=== PATIENT | male | born 2000 | race Caucasian/White ===

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

== ENCOUNTER 2019-12-22 17:48 | Observation (INO) | payer OTHER ==
--- NOTE | 2019-12-22 20:38 | ED ---
Abdominal Pain/Male - HPI Summary HPI Summary: This pt is a 19 Y/O M presenting to [facility] with a CC of abdominal pain in the RLQ that presented on 12/20/2019 and is rated a 4/10 in severity. He states that the pain has been consistent since the onset. He states that he has had a normal appetite and had one abnormal bowel movement on 12/20/2019 when the abdominal pain occurred. He states that he had a fever which was resolved by DayQuil. He denies any N/V/D, SOB, CP, headaches, chills, and diaphoresis. He also denies any recent travel. He has a PMHx of a potential penicillin allergy. He denies any alleviating factors. He states that he has increased pain with movement. He states that he was seen at [facility] and had many of his labs completed. Pt was recommended here for a CT A/P. - History of Current Complaint Chief Complaint: EDAbdPain Stated Complaint: ABD PAIN PER PT Time Seen by Provider: 12/22/19 20:25 Hx Obtained From: Patient Onset/Duration: Sudden Onset, Lasting Days - 2, Still Present Timing: Constant, Lasting Days - 2 Severity Initially: Moderate Severity Currently: Moderate Pain Intensity: 4 Pain Scale Used: 0-10 Numeric Location: Discrete At: RLQ Radiates: No Aggravating Factor(s): Movement Alleviating Factor(s): Nothing Associated Signs And Symptoms: Positive: Negative - CP, headaches, chills, Fever - resolved with DayQuil. Negative: Diaphoresis, Chest Pain, Decreased Appetite, Nausea, Vomiting, Diarrhea - Allergies/Home Medications Allergies/Adverse Reactions: Allergies Allergy/AdvReac Type Severity Reaction Status Date / Time Penicillins Allergy Difficulty Verified 12/22/19 17:50 Swallowing Home Medications: Home Medications Ibuprofen TAB* [Motrin TAB* 600 MG] 600 mg PO Q6HR PRN 12/15/18 [History Confirmed 12/22/19] diPHENhydraMINE PO* [Benadryl PO 25 MG TAB*] 25 mg PO TID PRN #30 tab 12/15/18 [ Rx Confirmed 12/22/19] PMH/Surg Hx/FS Hx/Imm Hx Previously Healthy: Yes Endocrine/Hematology History: Denies: Hx Diabetes Cardiovascular History: Denies: Hx Hypertension Respiratory History: Denies: Hx Asthma - Cancer History Hx Chemotherapy: No Hx Radiation Therapy: No - Surgical History Surgical History: None - Immunization History Immunizations Up to Date: Yes Infectious Disease History: No Infectious Disease History: Denies: Traveled Outside the [place] in Last 30 Days - Family History Known Family History: Positive: Hypertension - Social History Occupation: Student [email or web address] Lives: Dormitory/Roommates Alcohol Use: Rare Hx Substance Use: No Substance Use Type: Reports: None Hx Tobacco Use: No Smoking Status (MU): Never Smoked Tobacco Review of Systems Positive: Fever. Negative: Chills, Skin Diaphoresis Negative: Chest Pain Negative: Shortness Of Breath Positive: Abdominal Pain, Other - POSITIVE: unusual bowel movement on 2019. Negative: Vomiting, Diarrhea, Nausea Negative: Headache All Other Systems Reviewed And Are Negative: Yes Physical Exam - Summary Physical Exam Summary: Appearance: Well-appearing, Well-nourished, lying in bed comfortably Skin: Warm, dry, no obvious rash Eyes: sclera anicteric, no conjunctival pallor ENT: mucous membranes moist, pharynx appears normal Neck: Supple, nontender Respiratory: Clear to auscultation, no signs of respiratory distress Cardiovascular: Normal S1, S2. No murmurs. Normal distal pulses in tibial and radial bilaterally. Abdomen: Soft, RLQ tenderness with mild guarding, normal active bowel sounds present Musculoskeletal: Normal, Strength/ROM Intact Neurological: A&Ox3, awake and alert, mentation is normal, speech is fluent and appropriate Psychiatric: affect is normal, does not appear anxious or depressed Triage Information Reviewed: Yes Vital Signs On Initial Exam: Initial Vitals Temp Pulse Resp BP Pulse Ox 98.2 F 87 16 123/74 97 12/22/19 17:50 12/22/19 17:50 12/22/19 17:50 12/22/19 17:50 12/22/19 17:50 Vital Signs Reviewed: Yes Procedures - Sedation Patient Received Moderate/Deep Sedation with Procedure: No Diagnostics - Vital Signs Vital Signs Temp Pulse Resp BP Pulse Ox 12/22/19 17:50 98.2 F 87 16 123/74 97 - Laboratory Lab Statement: Any lab studies that have been ordered have been reviewed, and results considered in the medical decision making process. - CT CT A/P CT Interpretation Completed By: Radiologist Summary of CT Findings: Acute appendicitis with associated small abscess. No perforation. ED physician has reviewed this report. Re-Evaluation - Re-Evaluation First Eval Re-Evaluation Time: 22:28 Change: Unchanged Comment: He will be referred to surgery for possible removal of appendix. Pt made aware and is agreeable. Abdominal Pain Male Course/Dx - Course Course Of Treatment: This pt is a 19 Y/O M presenting to [facility] with a CC of abdominal pain in the RLQ that presented on 12/20/2019 and is rated a 4/10 in severity. He states that the pain has been consistent since the onset. He states that he has had a normal appetite and had one abnormal bowel movement on 12/20/2019 when the abdominal pain occurred. He states that he had a fever which was resolved by DayQuil. His PE found RLQ tenderness with mild guarding. Pt had most of his labs taken at [facility] and therefore will first be sent for a CT A/P to R/O appendicitis. CT A/P: Acute appendicitis with associated small abscess. No perforation. He will be referred to surgery for possible removal of appendix. Pt made aware and is agreeable. Dr. Rae, surgery, aggreed to admit the pt to surgery. His Dx is acute appendicitis with abscess. - Diagnoses Provider Diagnoses: Appendicitis with abscess - Provider Notifications Discussed Care Of Patient With: Jayden Rae Time Discussed With Above Provider: 22:58 Instructed by Provider To: Admit As Inpatient Admit/Transition Orders Completed By ED Provider: Yes Discharge ED - Sign-Out/Discharge Documenting (check all that apply): Patient Departure - admitted - Discharge Plan Condition: Stable Disposition: ADMITTED TO [facility] - Billing Disposition and Condition Condition: STABLE Disposition: Admitted to [facility] - Attestation Statements Document Initiated by Britney: Yes Documenting Scribe: Silviano Moses Provider For Whom Britney is Documenting (Include Credential): Andrés Layton MD Scribe Attestation: Silviano Castellon, clayed for Andrés Layton MD on 12/23/19 at 0646. Scribe Documentation Reviewed: Yes Provider Attestation: The documentation as recorded by the Silviano grover accurately reflects the service I personally performed and the decisions made by me, Andrés Layton MD Status of Scribe Document: Viewed
[2019-12-22] MEDS ORDERED: Iohexol 300* (CONTRAST) 10 ML SDV IV ONE (21:08)
[2019-12-22] MEDS ORDERED: metroNIDAZOLE IV 500 MG/100ML* 500 MG/100 ML BAG IVPB ONE (22:28)
[2019-12-22] MEDS ORDERED: cefTRIAXone(*) 1 GM in NS 0.9% 50 ML* 50 ML IVPB ONE (22:28)
[2019-12-22] MEDS ORDERED: Ondansetron INJ* 2 MG/ML VIAL IV PRN (23:22)
[2019-12-22] MEDS ORDERED: Acetaminophen TAB* 325 MG PO PRN (23:22)
--- NOTE | 2019-12-23 01:15 | HP ---
CC: [facility]; [facility] * HISTORY AND PHYSICAL ADMISSION: DATE OF ADMISSION: 12/22/19 CHIEF COMPLAINT: Acute appendicitis. HISTORY OF PRESENT ILLNESS: Mr. 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 He has had no anorexia. He has been eating well over the course of the 2 days. He denies having fevers, shakes, or chills. He has had no urinary complaints. Yesterday, he did pretty well and was eating well, but noticed some discomfort mainly in the right lower quadrant and on ambulating. He awoke late this morning and presented to the [facility]. There, the white blood cell count was obtained, which returned as 11, 000. Remainder of his other labs was essentially unremarkable. Labs were not done here at [facility]. In light of his history and physical exam, he was referred to the [facility] Emergency Room. While here in the emergency room, he underwent a CT scan of the abdomen and pelvis. I did review these images. This does show a rather large fecalith, there is inflammation in the right lower quadrant with possible fluid. This does not appear to be an abscess. There is no extraluminal air and the study was otherwise unremarkable, but the findings were consistent with acute appendicitis. While waiting in the ER waiting room he says he had several snacks and a Pepsi from the vending machine-he estimates that this was 3-4 hours ago. PAST MEDICAL HISTORY: Unremarkable. PAST SURGICAL HISTORY: None. ALLERGIES: PENICILLINS and ALMONDS. FAMILY HISTORY: Father had appendicitis. There is no diabetes or high blood pressure. SOCIAL HISTORY: He is a [place] student. He drinks alcohol very rarely on a social basis. He does not smoke regularly. Denies use of illicit drugs. REVIEW OF SYSTEMS: Cerebrovascular: No dizziness or visual disturbances. Cardiovascular: No chest pain, shortness of breath. Pulmonary: No wheezing or hemoptysis. GI: As per above. : No urgency or hematuria. Endocrine: There is no diabetes. PHYSICAL EXAMINATION GENERAL: He is a well-developed, well-nourished male, appears to be in no apparent distress, he is awake, alert, and conversive and quite pleasant. VITAL SIGNS: Temperature, he is afebrile; pulse 88; blood pressure 102/69. HEENT: Oral mucosa is slightly dry. LUNGS: Clear to auscultation with normal respiratory effort. HEART: Regular rate and rhythm without murmurs, rubs, gallops. ABDOMEN: His abdomen is soft and nondistended. He had normoactive bowel sounds throughout. There are no prior surgical incisions. No hernias. He has some mild tenderness in the right lower quadrant without peritoneal irritation, mass, rigidity, or rebound. EXTREMITIES: Showed no cyanosis or edema. IMPRESSION: Acute appendicitis, present for least 48 hours. There appears to be a large fecalith with significant amount of inflammation, which may represent perforation, although there is no extraluminal air or obvious abscess. There is no peritonitis. He has been afebrile with a white blood cell count of 11,000; however, he was somewhat tachycardic when he presented, but he has not received pain medicine during his stay here. While he was waiting in the waiting room, he had soda and snacks including potato chips, Twizzlers, and other assorted food from the vending machine because he was hungry. He will require an appendectomy. I did also talk with our anesthesiologist on- call, Dr. De Leon, discussed the timing of surgery and about the fact that he just had a rather large amount of oral intake. This is not urgent emergency as he has no evidence of peritonitis and only a slight tachycardia to proceed with surgery and from an anesthetic standpoint, he felt more comfortable waiting full 8 hours prior to proceeding with surgery to make this as safe as possible. In light of this fact, we will admit him and we have an operating room time in the morning. I discussed all of this with the patient and as this condition would change in the next 8 hours, we will proceed with surgery disregarding the risk of aspiration at that time. PLAN: 1. The patient will be admitted to the short stay unit. 2. He will kept n.p.o. and start him on IV fluids. 3. Receive ceftriaxone in the emergency room as well as Flagyl. These antibiotics will be continued. 4. Analgesia will be given. 5. I discussed the procedure with the patient and the risks, but not limited to , bleeding, infection, intraabdominal abscess formation, injury to intraperitoneal and retroperitoneal structures, possibility of an open procedure , possibility of drain placement, possibility of prolonged hospital stay depending on findings at surgery. The risks of anesthesia and blood clots were also discussed briefly. [id number]/[facility] #: [id number] [facility]
[2019-12-23] MEDS: HYDROmorphone INJ1* 1 MG/ML SYRINGE IV SLOW PU PRN ×2 (02:56→07:53)
[2019-12-23] MEDS: NS 0.9% 1000 ML** 1,000 ML IV SCH ×3 (03:21→21:19)
[2019-12-23] MEDS ORDERED: Clindamycin 900 MG/D5W BAG(*) 900 MG/50 ML BAG IVPB ONE (08:58)
[2019-12-23] MEDS ORDERED: Propofol* 10 MG/ML 20 ML BTL ONE ×2 (09:42→11:41)
[2019-12-23] MEDS ORDERED: Ondansetron INJ* 2 MG/ML VIAL ONE (09:42)
[2019-12-23] MEDS ORDERED: Lidocaine 2% PF * 5 ML VIAL ONE (09:42)
[2019-12-23] MEDS ORDERED: Bupivacaine 0.25% SDV* 30 ML ONE (09:42)
[2019-12-23] MEDS ORDERED: Ketorolac INJ* 30 MG/ML 1 ML VIAL ONE (09:42)
[2019-12-23] MEDS ORDERED: Dexamethasone IV* 4 MG/ML 1 ML (4 MG) ONE (09:42)
[2019-12-23] MEDS ORDERED: Cisatracurium* 2 MG/ML MDV 5 ML ONE (09:43)
[2019-12-23] MEDS ORDERED: fentaNYL* 50 MCG/ML 2 ML VIAL (100 MCG VIAL) ONE (09:43)
[2019-12-23] MEDS ORDERED: Midazolam* 1 MG/ML 5 ML VIAL (5 MG) ONE (09:43)
[2019-12-23] MEDS ORDERED: HYDROmorphone INJ1* 1 MG/ML SYRINGE ONE (11:04)
[2019-12-23] MEDS ORDERED: Ondansetron INJ* 2 MG/ML VIAL IV PRN (11:09)
[2019-12-23] MEDS ORDERED: fentaNYL* 50 MCG/ML 2 ML VIAL (100 MCG VIAL) IV PRN (11:09)
[2019-12-23] MEDS ORDERED: HYDROmorphone INJ1* 1 MG/ML SYRINGE IV PRN (11:09)
[2019-12-23] MEDS ORDERED: Naloxone* 0.4 MG/ML 1 ML VIAL IV PRN (11:09)
[2019-12-23] MEDS ORDERED: Glycopyrrolate IV* 0.2 MG/ML 1 ML VIAL ONE (11:31)
[2019-12-23] MEDS ORDERED: Neostigmine Methylsulfate* 1 MG/ML 10 ML VIAL (1 mg/ml) ONE (11:31)
--- NOTE | 2019-12-23 12:08 | OP ---
Operative Report - Blank - Operative Report Date of Operation: 12/23/19 Note: Pre-OP Diagnoses: acute appendicitis Post-op Diagnosis: appendicitis with abscess Procedure: Laparoscopic appendectomy, drainage of abscess Surgeon: Orlando Asst: none Anethesia: ROBERTO EBL: minimal IVF: crystalloid Specimen: appendix Drains: none
--- NOTE | 2019-12-23 13:08 | OP ---
CC: [facility] OPERATIVE REPORT: DATE OF OPERATION: 12/23/19 DATE OF : 89 SURGEON: Skyler Perry MD SOFTWARE ENGINEERING ANALYST: None. ANESTHESIOLOGIST: Dr. Ngo. ANESTHESIA: General. PRE-OP DIAGNOSIS: Acute appendicitis. POST-OP DIAGNOSIS: Acute appendicitis with abscess. OPERATIVE PROCEDURE: Laparoscopic appendectomy and drainage of appendiceal abscess. ESTIMATED BLOOD LOSS: Minimal. FLUIDS: Minimal crystalloid fluid given. SPECIMENS: Appendix. DRAINS: None. COMPLICATIONS: None. DESCRIPTION OF PROCEDURE: The patient was identified in the preoperative area. I discussed the case with him as I had met him for the first time. I recommended laparoscopic appendectomy given the fin dings and my discussion with the admitting surgeon Dr. Rae. I did review CT scans as well as t he patient's ER chart and H and P. I described the procedure of laparoscopic appendectomy, going over the risks, benefits, and alternati ves to the procedure. We spoke of the possible complications which include, but not limited to, blee ding, infection, injury to adjacent organs, need for open procedure, need for additional procedures. The patient's questions were answered and consent was signed. The patient was marked. He was then b rought to the operating room and placed on the operating room table in the supine position. He had b een receiving antibiotics. Sequential devices were placed on bilateral lower extremities and general anesthesia was induced. The patient's abdomen was clipped of hair and prepped and draped in the sta ndard surgical fashion. Time-out was performed. Folds of the umbilicus were elevated anteriorly and a Veress needle inserted into the abdominal cavit y, which was then allowed to insufflate to a pressure of 15 mmHg. The patient tolerated the insuffla tion well. An infraumbilical incision was made and a 12-mm optical trocar was inserted. Laparoscope was inserted through this and there was no evidence of injury from the trocar insertion. The Veress needle was then removed. Additional trocars were then placed in the following position: 5 mm in the suprapubic area and 5 mm in the left lower quadrant. Table was positioned. A large inflammatory mass was noted at the site of the appendix. We could not grasp this. The small bowel was mobilized superiorly. Ligament of Treitz was identified and it was unclear if this extended into the mass itself. We started our dissection on the lateral wall with Bovie cautery and blunt dissection. We entered in to an abscess cavity, and about 5 cc of donato pus was drained. Suction was on hand and this was suct ioned immediately. There were no stones. There was no evidence of fecalith at this time. I took additional attachments of the cecum up towards the liver. The colon was already close to midl ine, but this allowed me rotate it more towards the midline. Attention was then turned towards the ligament of Treitz, which was retracted superiorly and blunt di ssection carried out on top of the appendix. When I felt we could not move anymore dissection given the fact it was a big phlegmon I could not grasp, I found a window through what I felt was the base o f the appendix. A 45 mm cisse SVETLANA stapling device was fired through this; however, we bluntly dissecte d the portion distal to the cecum and it was clear that this was likely not appendix. This small bed of adipose tissue was then placed off to the side. The LigaSure device was then utilized. We kept going under the mesoappendix with both blunt dissecti on and the LigaSure device until we could roll this phlegmon up and off the retroperitoneum. We then pulled the appendix towards the right lower quadrant until we can see that this is all that we had a nd at this point identified the base of the appendix. The tip was never very quite clear, but we had the full mass up and off of the retroperitoneum and this attached through everything other than the base of the appendix. A 45-mm purple SVETLANA stapling device with reinforcement was opened up and fired across the base of the cecum through healthy tissue. The appendix was then placed in an endoscopic r etrieval bag and put off to the side. I turned my attention to the proximal cecum where we had done some of the sharp dissection towards th e ligament of Treitz, it appeared that we entered through the serosa of the proximal cecum. A U-stit ch was placed with 2-0 silk to imbricate this site, taking care not to get up against the ileocecal v alve. Review of the dissected site showed that there was no evidence of bleeding. We used approximately 2 L of warm saline to irrigate throughout the abdomen. I looked over the liver. There were no lesions . We suctioned up blood, and there was no evidence of new blood. Hemostasis again was excellent. W e suctioned fluid out of the pelvis. Next, we turned our attention to removing the specimen through the umbilical site. This required open ing the umbilical port site almost double to allow for this phlegmon and appendix to be removed throu gh this port. It was passed off as specimen and the umbilical port site was reapproximated with inte rrupted 0 Vicryl sutures and we re-insufflated the abdomen to review that we did not pickup any struc tures underneath, which we did not. Hemostasis again was excellent and the sutures were tied and the abdomen was allowed to collapse. The additional 2 trocars were then removed and then all 3 skin inc isions were reapproximated with 4- 0 Monocryl subcuticular sutures followed by Steri-Strips and steri le dressing. The patient was woken up and transferred to the PACU in stable condition. [id number]/[facility] #: [id number]
[2019-12-23] MEDS ORDERED: oxyCODONE/Acetamin 5/325 MG* TAB PO PRN ×2 (13:21→13:22)
[2019-12-23] MEDS: Ciprofloxacin 400MG IVPREMIX(* 400 MG/200 ML BAG IVPB SCH (13:23)
[2019-12-23] MEDS ORDERED: HYDROmorphone INJ* 0.5 MG/0.5 ML SYRINGE IV SLOW PU PRN (15:00)
[2019-12-24] MEDS: Ciprofloxacin 400MG IVPREMIX(* 400 MG/200 ML BAG IVPB SCH ×2 (01:41→13:17)
[2019-12-24] MEDS: NS 0.9% 1000 ML** 1,000 ML IV SCH ×2 (05:20→13:02)
[2019-12-24] MEDS: metroNIDAZOLE IV 500 MG/100ML* 500 MG/100 ML BAG IVPB SCH ×2 (06:19→14:29)
[2019-12-24] MEDS ORDERED: Influenza VAC *QUAD* 2019-20* 0.5 ML SYRINGE IM ONE (09:00)
--- NOTE | 2019-12-24 09:16 | PN ---
Progress Note - Progress Note Date of Service: 12/24/19 SOAP: Subjective: NAD Tolerating regular diet, no nausea, Flatus, or BM, + Belching [] Objective: Vital Signs Temp 97.9 F 12/24/19 07:00 Pulse 76 12/24/19 07:00 Resp 18 12/24/19 07:00 BP 99/53 12/24/19 07:00 Pulse Ox 98 12/24/19 07:00 Intake & Output 12/23/19 12/24/19 12/24/19 18:59 06:59 18:59 Intake Total 2890 3638 Output Total 400 2150 Balance 2490 1488 Weight 200 lb Intake: IV Fluids 2690 2378 LR 1500 NS (0.9%) 2378 IVPB 200 220 ABX - CIPROFLOXACIN 220 Oral 1040 Output: Urine 400 2150 Other: # Bowel Movements 0 PEX: GEN: NAD Chest: CTAB CVS: RRR Abd: non tender, mildly tympanic, incisional tenderness Ext: calves soft, non tender Assessment: 19 yo male POD 1 S/P Lap Appy for Appendicitis with abcess, doing well. Await Bowel Function [] Plan: Ambulate, IS, encouraged deep breathing. Will get PO ABX for 5 days on D/ C, await return of bowel function, prob d/c later today []
[2019-12-24 12:08] VITALS: BP 101/63
--- NOTE | 2019-12-24 14:24 | DS ---
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 Patient had eaten in the ED Waiting room so couldn't go to the OR until later on. He was taken to the OR for a laparoscopic Appendectomy by Dr Perry, tolerated well and returned to the [facility] for post op care. Post operative course was eneventful, he ambulated well, tolerated a diet, and his pain was well controlled. He had flatus after lunch and desired to go home. He was also seen by Dr Perry Discharge instructions were given to the patient regarding Diet, Medications, PO Cipro and Flagyl x 5 days, Activity, no lifting > 10 lbs x 3 weeks, and post operative Follow up on 12/29/2019 @ 3:00PM. All Questions were answered. Discharged Home in Stable Condition on 12/24/2019
== END 2019-12-24 14:34 | disposition home or self-care (01) ==
LOC: ED 17:48 → SSU 23:22
PROVIDERS: ADMIT Surgery; ATTEND Surgery
DX: K35.33 Acute appendicitis with perforation, localized peritonitis, and gangrene, with abscess (principal); R10.31 Right lower quadrant pain; Z88.0 Allergy status to penicillin; R50.9 Fever, unspecified; Z23 Encounter for immunization
CPT/HCPCS: 74177; 88304; 90471; 90686; 96365; 96367; 96375; 99284; A9270-GY; C1776; G0008; G0378; J0696; J0744; J1100; J1170; J1885; J2250; J2405; J2704; J2710; J3010; J3490; Q9967